=== PATIENT | female | born 1995 | race Caucasian/White ===

== ENCOUNTER 2016-11-08 00:12 | Emergency (ER) | payer MEDICAID ==
[2016-11-08] MEDS ORDERED: LORazepam 2 MG/ML MDV IVPUSH ONE (01:58)
--- NOTE | 2016-11-08 03:08 | EDM.PDOC ---
ED HPI GENERAL MEDICAL PROBLEM - General Chief Complaint: Cardiovascular Problem Stated Complaint: MEDICAL Time Seen by Provider: 11/08/16 01:58 Source of Information: Reports: Patient History Limitations: Reports: No Limitations - History of Present Illness INITIAL COMMENTS - FREE TEXT/NARRATIVE: This patient arrived by EMS. She says that she ate an "edible" which was ate rice crispy treat that supposedly had marijuana in it. She thinks it might have had something else may be. Afterwards her heart began to race and she was very anxious. She thought maybe she was having a panic attack. She also took her nighttime dose of amitriptyline 50 mg Treatments BUSHEL GIRL: Reports: IV/IO - Related Data Allergies Allergy/AdvReac Type Severity Reaction Status Date / Time hydrocodone Allergy Facial Verified 11/08/16 00:23 Swelling Penicillins Allergy Rash Verified 11/08/16 00:23 Home Meds: Home Meds Amitriptyline [Elavil] 50 mg PO BEDTIME 11/08/16 [History] Norgestimate-Ethinyl Estradiol [Trinessa Tablet] 1 tab PO BEDTIME 11/08/16 [ History] Vitamin B Complex [B Complex] 1 tab PO BEDTIME 11/08/16 [History] Past Medical History [employer]ESS History: Reports: Musculoskeletal History: Reports: Fracture Psychiatric History: Reports: Anxiety, Depression, Panic Attack - Past Surgical History Dermatological Surgical History: Reports: Plastic Surgical Reconstruction/Repair , Skin Biopsy Social & Family History - Tobacco Use Smoking Status *Q: Never Smoker - Recreational Drug Use Recreational Drug Use: No Recreational Drug Type: Reports: Marijuana/Hashish Recreational Drug Use Frequency: Monthly ED ROS GENERAL - Review of Systems Review Of Systems: ROS reveals no pertinent complaints other than HPI. ED EXAM, GENERAL - Physical Exam Exam: See Below Exam Limited By: No Limitations General Appearance: Alert, WD/WN, No Apparent Distress Eye Exam: Bilateral Eye: EOMI, Normal Inspection (She doesn't appear to be in acute distress doesn't appear especially anxious 5), PERRL Throat/Mouth: Normal Inspection, Normal Oropharynx Respiratory/Chest: Lungs Clear Cardiovascular: Regular Rate, Rhythm, Tachycardia GI/Abdominal: Non-Tender Extremities: Normal Inspection Neurological: Oriented, CN II-XII Intact, No Motor/Sensory Deficits, Other (she is awake but seems slightly sedated) Psychiatric: Flat Affect (Slightly flat) Skin Exam: Warm, Dry Course - Vital Signs Last Recorded V/S: Last Vital Signs Temp 37 C 11/08/16 00:15 Pulse 145 H 11/08/16 00:15 Resp 16 11/08/16 03:15 BP 133/76 11/08/16 03:15 Pulse Ox 98 11/08/16 02:15 - Orders/Labs/Meds Labs: Laboratory Tests 11/08/16 11/08/16 Range/Units 02:25 02:25 WBC 10.5 (4.5-11.0) K/uL RBC 4.43 (3.30-5.50) M/uL Hgb 11.7 L (12.0-15.0) g/dL Hct 36.2 (36.0-48.0) % MCV 82 (80-98) fL MCH 26 L (27-31) pg MCHC 32 (32-36) % Plt Count 259 (150-400) K/uL Neut % (Auto) 81 H (36-66) % Lymph % (Auto) 12 L (24-44) % [place] % (Auto) 7 H (2-6) % Eos % (Auto) 0 L (2-4) % Baso % (Auto) 0 (0-1) % Sodium 140 (140-148) mmol/L Potassium 3.4 L (3.6-5.2) mmol/L Chloride 106 (100-108) mmol/L Carbon Dioxide 27 (21-32) mmol/L Anion Gap 10.4 (5.0-14.0) mmol/L BUN 13 (7-18) mg/dL Creatinine 0.9 (0.6-1.0) mg/dL Est Cr Clr Drug Dosing 88.97 mL/min Estimated GFR (MDRD) > 60 (>60) Glucose 121 H (74-106) mg/dL Calcium 8.5 (8.5-10.1) mg/dL Meds: Medications Discontinued Medications Generic Name Dose Route Start Last Admin Trade Name Freq PRN Reason Stop Dose Admin Lorazepam 1 mg 11/08/16 01:58 11/08/16 02:12 Ativan IVPUSH 11/08/16 01:59 1 mg ONETIME ONE Administration - Re-Assessments/Exams Free Text/Narrative Re-Assessment/Exam: 11/08/16 04:41 EKG showed sinus tachycardia. There were no signs of ischemia. Labs were done and reviewed. The patient never furnished a urine specimen. She received Ativan 1 mg IV. When she was examined later her heart rate was about 90 and she seemed more comfortable but slightly sedated. Departure - Departure Time of Disposition: 03:05 Disposition: Home, Self-Care 01 Condition: Fair Clinical Impression: Drug abuse Instructions: Cannabis Use Disorder Referrals: PCP,None [Primary Care Provider] - Forms: ED Department Discharge Additional Instructions: Avoid using recreational drugs. Especially avoid ingesting anything that somebody else gives you since you have no idea what is in it. Today you probably got something that contained methamphetamine or one of the other stimulating drugs. There is no way for us to tell what kind of a drug it was.
[2016-11-08 04:08] VITALS: BP 133/76
== END 2016-11-08 03:28 | disposition home or self-care (01) ==
LOC: JP.ED 00:12
DX: F12.10 Cannabis abuse, uncomplicated (principal); F41.9 Anxiety disorder, unspecified; F32.9 Major depressive disorder, single episode, unspecified; Z79.899 Other long term (current) drug therapy; Z88.0 Allergy status to penicillin; Z88.5 Allergy status to narcotic agent
CPT/HCPCS: 36415; 80048; 85025; 96374; 99283; J2060

== ENCOUNTER 2017-04-12 01:21 | Emergency (ER) | payer MEDICAID ==
[2017-04-12 01:52] VITALS: BP 145/91
--- NOTE | 2017-04-12 02:19 | EDM.PDOC ---
ED HPI GENERAL MEDICAL PROBLEM - General Chief Complaint: [employer]ING [employer] MACHINE Problem Stated Complaint: 11 WEEKS AND SPOTTING Time Seen by Provider: 04/12/17 01:42 Source of Information: Reports: Patient, RN Notes Reviewed History Limitations: Reports: No Limitations - History of Present Illness INITIAL COMMENTS - FREE TEXT/NARRATIVE: 02.00 Here with her Chief complaint Vaginal spotting History of present illness 21-year-old female, blood weeks gestation She is in her third Noted some pink spotting when she wiped herself, since then she's had small amount of pink/brownish discharge and when she worked herself here there is only a small amount of brownish discharge, no further bleeding. No cramps No fever no nausea or vomiting. History of previous vaginal delivery to have years ago and miscarriage last year at 7 weeks gestation associated with lots pain and bleeding - Related Data Allergies Allergy/AdvReac Type Severity Reaction Status Date / Time hydrocodone Allergy Facial Verified 04/12/17 01:46 Swelling Penicillins Allergy Rash Verified 04/12/17 01:46 Home Meds: Home Meds Amitriptyline [Elavil] 50 mg PO BEDTIME 11/08/16 [History] Norgestimate-Ethinyl Estradiol [Trinessa Tablet] 1 tab PO BEDTIME 11/08/16 [ History] Vitamin B Complex [B Complex] 1 tab PO BEDTIME 11/08/16 [History] Pnv No.95/Ferrous Fum/Folic AC [ Multivitamin Tablet] 04/12/17 [History ] Past Medical History Respiratory History: Reports: Other (See Below) Other Respiratory History: pneumonia X1 [employer]ING [employer] MACHINE History: Reports: Musculoskeletal History: Reports: Fracture Psychiatric History: Reports: Anxiety, Depression, Panic Attack - Past Surgical History Dermatological Surgical History: Reports: Plastic Surgical Reconstruction/Repair , Skin Biopsy Social & Family History - Tobacco Use Smoking Status *Q: Never Smoker Second Hand Smoke Exposure: Yes - Caffeine Use Caffeine Use: Reports: None - Recreational Drug Use Recreational Drug Use: No Recreational Drug Type: Reports: Marijuana/Hashish Recreational Drug Use Frequency: Monthly ED ROS GENERAL - Review of Systems Review Of Systems: See Below Constitutional: Reports: No Symptoms HEENT: Reports: No Symptoms Cardiovascular: Reports: No Symptoms GI/Abdominal: Reports: No Symptoms : Reports: Other (Vaginal spotting) Skin: Reports: No Symptoms Neurological: Reports: No Symptoms ED EXAM - Physical Exam Exam: See Below Exam Limited By: No Limitations General Appearance: Alert, No Apparent Distress, Other (Appears healthyMild elevation of blood pressure otherwise vital signs normal) Eye Exam: Bilateral Eye: Normal Inspection Head: Atraumatic, Normocephalic Neck: Normal Inspection Respiratory/Chest: No Respiratory Distress, No Accessory Muscle Use Cardiovascular: Normal Peripheral Pulses, Regular Rate, Rhythm GI/Abdominal Exam: Normal Bowel Sounds, Soft, Non-Tender, No Distention Heart Tones: Not [place] (Using Doptone) Back Exam: Normal Inspection Extremities: Normal Inspection Neurological: Alert, Oriented, No Motor/Sensory Deficits Psychiatric: Normal Mood Skin Exam: Warm, Dry, Normal Color Course - Vital Signs Last Recorded V/S: Last Vital Signs Temp 35.6 C 04/12/17 01:34 Pulse 81 04/12/17 01:34 Resp 16 04/12/17 01:34 BP 145/91 H 04/12/17 01:34 Pulse Ox 97 04/12/17 01:34 - Re-Assessments/Exams Free Text/Narrative Re-Assessment/Exam: 04/12/17 02:16 21-year-old female in her third at 11 weeks gestation with vaginal spotting. No fever or pain. Unable to find heart tone by Doppler. Ultrasound scheduled Blood group Rh+ See discharge instructions Departure - Departure Time of Disposition: 02:16 Disposition: Home, W Home Health Agency 06 Condition: Good (First trimester spotting), Undetermined Clinical Impression: Spotting affecting in first trimester - Discharge Information Instructions: Threatened Miscarriage Referrals: PCP,None [Primary Care Provider] - Forms: ED Department Discharge Additional Instructions: Bleeding or spotting in early is called threatened miscarriage. However the database support the bleeding and the less pain both make miscarriage much less likely. Return for ultrasound because of the spotting, follow-up with your provider within the week. Return to emergency if heavy bleeding, faint or lightheaded, fever, repeated vomiting, or significant/severe abdominal pain
--- NOTE | 2017-04-12 08:09 | PCM.SN ---
- Free Text/Narrative Note: Provided patient information on ultrasound results which show a small subchorionic bleed, heart tones in the 170s estimated intrauterine at approximately 9 weeks official read radiology is pending
== END 2017-04-12 02:45 | disposition home health service (06) ==
LOC: JP.ED 01:21
DX: O26.851 Spotting complicating pregnancy, first trimester (principal); O99.341 Other mental disorders complicating pregnancy, first trimester; F41.0 Panic disorder [episodic paroxysmal anxiety]; F32.9 Major depressive disorder, single episode, unspecified; Z77.22 Contact with and (suspected) exposure to environmental tobacco smoke (acute) (chronic); Z88.0 Allergy status to penicillin; Z88.5 Allergy status to narcotic agent; Z3A.11 11 weeks gestation of pregnancy; O46.8X1 Other antepartum hemorrhage, first trimester; Z3A.09 9 weeks gestation of pregnancy
CPT/HCPCS: 76801; 76801-26; 99284

== ENCOUNTER 2018-10-10 22:26 | Emergency (ER) | payer MEDICAID ==
[2018-10-10 22:51] VITALS: BP 142/78
--- NOTE | 2018-10-10 23:08 | EDM.PDOC ---
ED HPI GENERAL MEDICAL PROBLEM - General Chief Complaint: Lower Extremity Injury/Pain Stated Complaint: BROKE ANKLE Time Seen by Provider: 10/10/18 23:08 Source of Information: Reports: Patient History Limitations: Reports: No Limitations - History of Present Illness INITIAL COMMENTS - FREE TEXT/NARRATIVE: pt was standing on the tolet trying to get away from a mouse. The left foot slipped into the tolet bowl and she hit it and twisted the ankle. Onset: Today, Sudden Duration: Hour(s): Location: Reports: Lower Extremity, Left Associated Symptoms: Reports: No Other Symptoms Treatments [employer] COORDINATOR: Reports: Cold Therapy left ankle Pain Score (Numeric/FACES): 7 - Related Data Allergies Allergy/AdvReac Type Severity Reaction Status Date / Time hydrocodone Allergy Facial Verified 10/10/18 22:53 Swelling Penicillins Allergy Rash Verified 10/10/18 22:53 Home Meds: Home Meds NK [No Known Home Meds] 10/10/18 [History] Past Medical History Respiratory History: Reports: Other (See Below) Other Respiratory History: pneumonia X1 [employer] History: Reports: Musculoskeletal History: Reports: Fracture Psychiatric History: Reports: Anxiety, Depression, Panic Attack - Past Surgical History Dermatological Surgical History: Reports: Plastic Surgical Reconstruction/Repair , Skin Biopsy Social & Family History - Tobacco Use Smoking Status *Q: Never Smoker - Caffeine Use Caffeine Use: Reports: None - Recreational Drug Use Recreational Drug Use: No Review of Systems - Review of Systems Review Of Systems: See Below Constitutional: Reports: No Symptoms Eyes: Reports: No Symptoms Ears: Reports: No Symptoms Nose: Reports: No Symptoms Mouth/Throat: Reports: No Symptoms Respiratory: Reports: No Symptoms Cardiovascular: Reports: No Symptoms GI/Abdominal: Reports: No Symptoms Genitourinary: Reports: No Symptoms Musculoskeletal: Reports: Other ( pain in the left ankle and lower left tib-fib area. ) ED EXAM, GENERAL - Physical Exam Exam: See Below Free Text/Narrative:: pt arrived uncomfortable in the left ankle and left lower leg. She had been standing on the tolet trying to get away from a mouse. Exam Limited By: No Limitations General Appearance: Alert, Anxious, Moderate Distress Ears: Normal TMs Extremities: Other (pt has some bruisin on the lateral tibfib area. She is tender at the ankle. ) Neurological: Alert, Oriented, Normal Cognition Course - Vital Signs Last Recorded V/S: Last Vital Signs Temp 35.5 C 10/10/18 22:55 Pulse 73 10/10/18 22:55 Resp 16 10/10/18 22:55 BP 142/78 H 10/10/18 22:55 Pulse Ox 100 10/10/18 22:55 - Orders/Labs/Meds Orders: Active Orders 24 hr Category Date Time Status Ibuprofen [Motrin] Med 10/10/18 23:50 Once 600 mg PO ONETIME ONE - Re-Assessments/Exams Free Text/Narrative Re-Assessment/Exam: 10/10/18 23:54 xrays of the tibfib and ankle were obtained which did not reveal a fracture. Pt did not wish crutches. Departure - Departure Time of Disposition: 23:48 Disposition: Home, Self-Care 01 Condition: Fair Clinical Impression: Contusion of left ankle - Discharge Information Referrals: PCP,None [Primary Care Provider] - Forms: ED Department Discharge Care Plan Goals: elevate, coolpack, motrin 600mg q6h as needed for pain. pt did not wish crutches - My Orders Last 24 Hours: My Active Orders 10/10/18 23:50 Ibuprofen [Motrin] 600 mg PO ONETIME ONE - Assessment/Plan Last 24 Hours: My Active Orders 10/10/18 23:50 Ibuprofen [Motrin] 600 mg PO ONETIME ONE
--- NOTE | 2018-10-10 23:39 | CRLCR ---
Indication: Pain Technique: Three views of the left ankle Comparison: None available Findings: Bones: Alignment is normal. No fractures or bone lesions. Joint spaces: Unremarkable. Soft tissues: Unremarkable. Impression: Negative. Dictated by Ollie Andrade MD @ 10/10/2018 11:38:03 PM Dictated by: Ollie Andrade MD @ 10/10/2018 23:38:08 (Electronically Signed)
--- NOTE | 2018-10-10 23:41 | CRLCR ---
Indication: Pain Technique: Two views of the left tibia and fibula Comparison: None available Findings: Bones: No acute fracture or dislocation. A small sclerotic focus underlying the tibial tuberosity, of doubtful clinical significance. Joint spaces: Unremarkable. Soft tissues: Unremarkable. Impression: No acute fracture or dislocation. Dictated by Ollie Andrade MD @ 10/10/2018 11:40:15 PM Dictated by: Ollie Andrade MD @ 10/10/2018 23:40:24 (Electronically Signed)
[2018-10-10] MEDS ORDERED: Ibuprofen 600 MG Tab PO ONE (23:50)
== END 2018-10-10 23:56 | disposition home or self-care (01) ==
LOC: JP.ED 22:26
DX: S90.02XA Contusion of left ankle, initial encounter (principal); Z88.0 Allergy status to penicillin; Z88.8 Allergy status to other drugs, medicaments and biological substances; X50.1XXA Overexertion from prolonged static or awkward postures, initial encounter
CPT/HCPCS: 73590-LT; 73610-LT; 99283-25